=== PATIENT | male | born 1970 | race African-American/Black ===

== ENCOUNTER 2019-05-10 17:56 | Emergency (ER) | payer MEDICAID ==
[~2019-05-10] VITALS: Ht 177.8 cm; Wt 80.0 kg
[2019-05-10] MEDS ORDERED: PHEN100C4 PO (18:05)
[2019-05-10] MEDS ORDERED: ONDANSETRON HCL 4MG/2ML INJ IV STA (19:27)
[2019-05-10] MEDS ORDERED: SODIUM CHLORIDE 0.9% 1,000 ML IV ONE (19:27)
[2019-05-10] MEDS ORDERED: LEVETIRACETAM 1000MG/100ML 100 ML IV ONE (19:30)
[2019-05-10 19:52] LABS: BASOPHILS % 0.6 % (0.0-2.0); EOSINOPHILS % 0.3 % (0.0-5.0); HEMATOCRIT. 41.8 % (42.0-52.0); HEMOGLOBIN. 14.4 g/dL (14.0-18.0); LYMPHOCYTES % 13.7 % (20.0-50.0); MEAN CORPUSCULAR HEMOGLOBIN 29.9 pg (28.0-32.0); MEAN CORPUSCULAR VOLUME 86.9 fL (80.0-94.0); MEAN PLATELET VOLUME 7.9 fl (7.4-10.4); MONOCYTES % 6.4 % (2.0-8.0); PLATELET 266 x1000/uL (130-400); RED BLOOD CELL COUNT 4.81 mill/uL (4.7-6.1); RED CELL DISTRIBUTION WIDTH 13.8 % (11.6-14.6)
[2019-05-10 19:57] LABS: CHLORIDE 104 mEq/L (98-107)
[2019-05-10 20:02] LABS: ETHANOL BLOOD < 10 mg/dL
[2019-05-10 20:06] LABS: CREATINE KINASE 207 IU/L (39-308)
[2019-05-10 20:12] LABS: CARBAMAZEPINE < 0.5 ug/mL (4-12); VALPROIC ACID < 3.0 ug/mL (50-100)
[2019-05-10 20:13] LABS: PHENOBARBITAL < 2.1 ug/mL (15.0-40.0)
[2019-05-10] MEDS ORDERED: PHENYTOIN SODIUM EXTENDED 100MG CAPSULE PO ONE (21:00)
[2019-05-11 01:55] VITALS: BP 128/86
== END 2019-05-11 02:05 | disposition home or self-care (01) ==
LOC: ER 17:56
DX: R56.9 Unspecified convulsions (principal); F12.10 Cannabis abuse, uncomplicated; F17.200 Nicotine dependence, unspecified, uncomplicated; Z71.6 Tobacco abuse counseling
CPT/HCPCS: 36415; 80053; 80156; 80165; 80184; 80185; 80320; 82140; 82550; 82962; 83690; 84443; 84484; 85025; 93005; 96365; 96375; 99284; 99406; J1953; J2405; J7030; G0480